=== PATIENT | male | born 1980 | race African-American/Black ===

== ENCOUNTER 2024-04-24 19:41 | Emergency (ER) | payer OTHER ==
[~2024-04-24 19:41] MED LIST: Iopamidol 370 76% 100 ML VIAL ONE
[2024-04-24 20:42] LABS: #Lymphocytes 1.5 thou/uL (1.20-3.40); #Monocytes 0.6 thou/uL (0.11-0.59); #Neutrophils 2.8 thou/uL (1.40-6.50); %Eosinophils 0.2 % (0.0-10.0); %Monocytes 12.4 % (0.0-10.0); %Neutrophils 56.4 % (42.0-75.0); Hematocrit 43.6 % (42.0-52.0); Hemoglobin 13.3 g/dL (14.0-18.0); Mean Corpuscular HGB CONC 30.6 g/dL (32.0-36.0); Mean Corpuscular Volume 88.4 fl (78.0-98.0); Mean Platelet Volume 6.8 fL (7.4-10.4); Platelet Count 198 10x3/uL (130-400); RBC Distribution Width 11.6 % (11.5-14.5); Red Blood Cell (RBC) Count 4.93 mill/uL (4.70-6.10); White Blood Cell (WBC) Count 4.9 10x3/uL (4.8-10.8)
[2024-04-24 21:01] LABS: ALT (SGPT) 28 U/L (8-55); AST (SGOT) 16 U/L (5-34); Albumin 4.2 g/dL (3.5-5.0); Alkaline Phosphatase 70 U/L (40-110); Anion Gap 15 mmol/L (10-20); BUN (Urea Nitrogen) 10 mg/dL (8.9-20.6); Bilirubin, Total 0.9 mg/dL (0.2-1.2); Calc. Creatinine Clearance 0 mL/min (70-130); Calcium 9.2 mg/dL (7.8-10.44); Carbon Dioxide 24 mmol/L (22-29); Chloride 103 mmol/L (98-107); Estimated GFR 74; Globulin 2.8 g/dL (2.4-3.5); Glucose 96 mg/dL (70-105); Potassium 3.4 mmol/L (3.5-5.1); Sodium 139 mmol/L (136-145)
[2024-04-24] MEDS ORDERED: Acetaminophen 500 MG TAB ONE (22:04)
[2024-04-24] MEDS ORDERED: Aspirin Chewable 81 MG TAB ONE (22:12)
== END 2024-04-24 23:05 | disposition short-term general hospital (02) ==
LOC: MADERS 19:41
DX: G45.9 Transient cerebral ischemic attack, unspecified (principal); Z55.6 Problems related to health literacy
CPT/HCPCS: 0042T; 36416; 70450; 70498; 80053; 85025; 93005; 36415-59; Q9967